=== PATIENT | male | born 1930 | race Caucasian/White ===

== ENCOUNTER 2017-02-20 09:59 | Emergency (ER) | payer MEDICARE, OTHER ==
--- NOTE | ~2017-02-20 | ER ---
PATIENT'S NAME: LIEN [facility] AGE: 86 Y [address] ROOM: [place] [address] LOCATION: [facility] ADMIT DATE: 02/20/2017 ER/Outpatient Report DISCHARGE DATE: 02/20/2017 FAMILY PHYSICIAN: PHYSICIAN, NO ATTENDING PHYSICIAN: Eliecer Jacome Time of Arrival: Time of Evaluation: Admission date and time documented on the medical record. I saw the patient at 1015 hours. CHIEF COMPLAINT: No bowel movement for 10 days. HISTORY OF PRESENT ILLNESS: This patient is an 86-year-old male, who has not had a bowel movement for 10 days. Feels a little bit full and was worried. He did want to get completely bound up. He has some nausea at times. No vomiting. No urinary frequency, urgency, or dysuria. No real abdominal pain, chest pain, or shortness of breath. No back pain. No lightheadedness, dizziness, syncope, or near syncope. No fall or trauma. No recent colds, coughs, flus, fever, chills, or sweats. No headache, eyes, ears, nose, throat, neck, or spine pain. No joint or muscle swelling, redness, or pain. No skin eruptions or rash. No history of neurological changes, psychiatric issues, or endocrine problems. HOME MEDICATIONS: See attached medication list. ALLERGIES: PENICILLIN. SOCIAL HISTORY: Nonsmoker. Nondrinker. SIGNIFICANT PAST MEDICAL HISTORY: 1. Bladder cancer. 2. Hypertension. 3. Urine retention. 4. Valvular heart disease. 5. Aortic stenosis. 6. Dyslipidemia. 7. Paroxysmal atrial fibrillation. 8. Degenerative joint disease. 9. Degenerative osteoarthritis. 10. Chronic anticoagulation with Coumadin. PATIENT'S NAME: LIEN [facility] AGE: 86 Y [address] ROOM: [place] [address] LOCATION: [facility] ADMIT DATE: 02/20/2017 ER/Outpatient Report DISCHARGE DATE: 02/20/2017 FAMILY PHYSICIAN: PHYSICIAN, NO ATTENDING PHYSICIAN: Eliecer Jacome PAST SURGICAL HISTORY: Operations: 1. Cystoscopies. 2. Prostatectomy. 3. Total hip arthroplasty. REVIEW OF SYSTEMS: All systems reviewed by me are negative with the exception of those discussed in the History of the Present Illness. PHYSICAL EXAMINATION: VITAL SIGNS: Temperature 99.0, pulse 66, respiratory rate 20, blood pressure 164/82, and O2 saturation on room air is 98%. HEENT: Head; normocephalic. Eyes; clear. Ears; clear TMs bilaterally. Nose and Throat; clear. Mucous membranes moist. NECK: Negative. SPINE: Negative. LUNGS: Clear. Good air flow. No rales, rhonchi, or wheezes. HEART: Regular. Pulses are palpable. ABDOMEN: Obese, soft, nondistended, and nontender. Active bowel tones. No organomegaly or abnormal mass palpable. EXTREMITIES: Intact. NEUROLOGIC: Neurovascularly intact. SKIN: Clear. LABORATORY DATA AND IMAGING STUDIES: KUB x-ray showed stool throughout the colon. No impaction. Did not feel that he was obstructed. We will review plain film with the radiologist. IMPRESSION: Constipation. PLAN: The patient was given Dulcolax tablets 2 orally here in the emergency department. Dismissed home. Observation. Activity as tolerated. Continue home medications and care. Clear liquid diet for 24 hours, then advance diet as tolerated. One bottle of mag citrate orally at home. Follow up with personal physician as needed. Discussion ensued with the patient concerning my findings and recommendations, he understands. ELIECER JACOME MD PATIENT'S NAME: YULI EMMANUEL [facility] AGE: 86 Y [address] ROOM: [place] [address] LOCATION: ED ADMIT DATE: 02/20/2017 ER/Outpatient Report DISCHARGE DATE: 02/20/2017 FAMILY PHYSICIAN: PHYSICIAN, NO ATTENDING PHYSICIAN: Eliecer Jacome SDS/modl /[id number] d: 02/20/17 1748 t: 02/21/17 0616, OUTPATIENT REPORT
== END 2017-02-20 11:31 | disposition disaster alternative care site (69) ==
LOC: GMED 09:59
DX: K59.00 Constipation, unspecified (principal); I10 Essential (primary) hypertension; E78.5 Hyperlipidemia, unspecified; I48.0 Paroxysmal atrial fibrillation; M19.90 Unspecified osteoarthritis, unspecified site; Z88.0 Allergy status to penicillin; Z98.890 Other specified postprocedural states